=== PATIENT | female | born 1990 | race Caucasian/White ===

== ENCOUNTER 2019-02-23 21:01 | Emergency (ER) | payer OTHER ==
[2019-02-23 21:37] VITALS: BP 118/69; PULSE 72; TEMP 98.7; BMI 22.6
--- NOTE | 2019-02-23 22:18 | PDOC ---
History of Present Illness - General Chief Complaint: Cold Symptoms Stated Complaint: FLU LIKE SYMPTOMS Time Seen by Provider: 02/23/19 22:13 History Source: Patient - History of Present Illness Initial Comments: 02/23/19 22:37 Chief complaint: Cough Patient is a healthy 28-year-old female with 1 day of "fever", chills, temperature of 99 with cough, sore throat and runny nose. Patient is concerned that she has the flu. Patient siblings had similar. Patient is able to swallow, eat and drink. Patient complaining of painful cough. GENERAL/CONSTITUTIONAL: No fever, weakness. dizziness HEAD, EYES, EARS, NOSE AND THROAT: No change in vision. No ear pain or discharge. + sore throat. CARDIOVASCULAR: No chest pain RESPIRATORY: No shortness of breath or +cough GASTROINTESTINAL: No pain, nausea, vomiting, diarrhea or constipation GENITOURINARY: No dysuria MUSCULOSKELETAL: No neck or back pain SKIN: No rash NEUROLOGIC: No headache, vertigo, loss of consciousness, or loss of sensation. GENERAL: The patient is awake, alert, and fully oriented, in no acute distress. HEAD: Normal with no signs of trauma. EYES: Pupils equal, round and reactive to light, sclera anicteric, conjunctiva clear. ENT: pharynx: no erythema, no exudate, uvula midline, ears clear, TMs normal NECK: supple CHEST: clear, nontender, rr ABD: soft, nontender BACK: no tenderness or signs of injury EXTREMITIES: Normal range of motion, no edema. NEUROLOGICAL: Normal speech, normal gait. SKIN: Warm, Dry Past History - Past Medical History Allergies/Adverse Reactions: Allergies Allergy/AdvReac Type Severity Reaction Status Date / Time No Known Allergies Allergy Verified 02/23/19 21:34 COPD: No Other medical history: Pt denies - Suicide/Smoking/Psychosocial Hx Smoking History: Current every day smoker Have you smoked in the past 12 months: No Information on smoking cessation initiated: No Hx Alcohol Use: No Drug/Substance Use Hx: No *Physical Exam - Vital Signs Last Vital Signs Temp Pulse Resp BP Pulse Ox 98.7 F 72 18 118/69 99 02/23/19 21:35 02/23/19 21:35 02/23/19 21:35 02/23/19 21:35 02/23/19 21:35 Medical Decision Making - Medical Decision Making 02/23/19 22:38 healthy 28-year-old female with upper respiratory symptoms for one day, concerned about flu and cough. Is anxious about may be having the flu and that her cough is painful. Patient appears well, lungs are clear, nose concerning clinical signs. Patient given Motrin, flu and strep sent Patient signed out to [facility] to follow strep and flu and reassess *DC/Admit/Observation/Transfer Diagnosis at time of Disposition: Upper respiratory infection Qualifiers: URI type: unspecified URI Qualified Code(s): J06.9 - Acute upper respiratory infection, unspecified - Referrals Referrals: ON STAFF,NOT [Primary Care Provider] - - Patient Instructions - Post Discharge Activity
[2019-02-23] MEDS ORDERED: IBUPROFEN 600 MG TABLET (FP) PO ONE ×2 (22:28→22:31)
--- NOTE | 2019-02-23 23:06 | PDOC ---
*Physical Exam - Vital Signs Last Vital Signs Temp Pulse Resp BP Pulse Ox 98.7 F 72 18 118/69 99 02/23/19 21:35 02/23/19 21:35 02/23/19 21:35 02/23/19 21:35 02/23/19 21:35 ED Treatment Course - Medications Given in the ED: ED Medications Discontinued Medications Generic Name Dose Route Start Last Admin Trade Name Freq PRN Reason Stop Dose Admin Ibuprofen 600 mg 02/23/19 22:28 02/23/19 22:32 Motrin - PO 02/23/19 22:29 600 mg ONCE ONE Administration Medical Decision Making - Medical Decision Making 02/23/19 23:06 Patient seen by the advanced practice provider under my direct supervision. Ancillary testing reviewed as necessary. I agree with plan as outlined by the advanced practice provider. *DC/Admit/Observation/Transfer Diagnosis at time of Disposition: Upper respiratory infection Qualifiers: URI type: unspecified URI Qualified Code(s): J06.9 - Acute upper respiratory infection, unspecified - Discharge Dispostion Disposition: HOME - Prescriptions Prescriptions: Albuterol Sulfate Inhaler - [Ventolin HFA Inhaler -] 1 - 2 inh PO QID PRN #1 inhaler PRN Reason: Cough Guaifenesin [Mucinex] 600 mg PO BID #14 tab.er.12h Sodium Chloride [Saline Nasal [place]] 30 ml NS QID PRN #1 spray PRN Reason: nasal congestion - Referrals Referrals: ON STAFF,NOT [Primary Care Provider] - - Patient Instructions Printed Discharge Instructions: DI for Common Cold Additional Instructions: Drink plenty of fluids Gargle with warm salty water Drink warm liquids Take ibuprofen every 6 hours as needed for pain or fever Follow with your doctor as soon as possible. return to the ER for any worsening symptoms. - Post Discharge Activity Forms/Work/School Notes: Back to Work
--- NOTE | 2019-02-23 23:06 | PDOC ---
*Physical Exam - Vital Signs Last Vital Signs Temp Pulse Resp BP Pulse Ox 98.7 F 72 18 118/69 99 02/23/19 21:35 02/23/19 21:35 02/23/19 21:35 02/23/19 21:35 02/23/19 21:35 - Physical Exam General Appearance: Yes: Appropriately Dressed Respiratory/Chest: positive: Other (upper airway transmitted sounds. ) Cardiovascular: positive: Regular Rhythm, Regular Rate Extremity: positive: Normal Capillary Refill Integumentary: positive: Normal Color, Dry, Warm Neurologic: positive: Fully Oriented, Alert, Normal Mood/Affect ED Treatment Course - Medications Given in the ED: ED Medications Discontinued Medications Generic Name Dose Route Start Last Admin Trade Name Freq PRN Reason Stop Dose Admin Ibuprofen 600 mg 02/23/19 22:28 02/23/19 22:32 Motrin - PO 02/23/19 22:29 600 mg ONCE ONE Administration Medical Decision Making - Medical Decision Making 02/23/19 23:05 Viral syndrome P: Influenza negative rapid strep negative will give albuterol x 1 *DC/Admit/Observation/Transfer Diagnosis at time of Disposition: Upper respiratory infection Qualifiers: URI type: unspecified URI Qualified Code(s): J06.9 - Acute upper respiratory infection, unspecified - Discharge Dispostion Disposition: HOME Condition at time of disposition: Stable - Prescriptions Prescriptions: Albuterol Sulfate Inhaler - [Ventolin HFA Inhaler -] 1 - 2 inh PO QID PRN #1 inhaler PRN Reason: Cough Guaifenesin [Mucinex] 600 mg PO BID #14 tab.er.12h Sodium Chloride [Saline Nasal [place]] 30 ml NS QID PRN #1 spray PRN Reason: nasal congestion - Referrals Referrals: ON STAFF,NOT [Primary Care Provider] - - Patient Instructions Printed Discharge Instructions: DI for Common Cold Additional Instructions: Drink plenty of fluids Gargle with warm salty water Drink warm liquids Take ibuprofen every 6 hours as needed for pain or fever Follow with your doctor as soon as possible. return to the ER for any worsening symptoms. - Post Discharge Activity Forms/Work/School Notes: Back to Work
[2019-02-23] MEDS ORDERED: ALBUTEROL SO4 2.5/IPRATROPIUM 0.5 INH SOL 3 ML VIAL.NEB. NEB ONE ×2 (23:09→23:12)
== END 2019-02-23 23:46 | disposition home or self-care (01) ==
LOC: JERFT 21:01 → JER 21:01
PROC: 3E0F7GC Introduction of Other Therapeutic Substance into Respiratory Tract, Via Natural or Artificial Opening (ICD-10-PCS; principal; 2019-02-23)
DX: J06.9 Acute upper respiratory infection, unspecified (principal); B97.89 Other viral agents as the cause of diseases classified elsewhere
CPT/HCPCS: 87070; 87804; 87880; 94640; 99282-25

== ENCOUNTER 2019-07-01 14:34 | Emergency (ER) | payer OTHER ==
[2019-07-01 15:12] VITALS: TEMP 98.3; BMI 23.3
--- NOTE | 2019-07-01 15:13 | PDOC ---
Rapid Medical Evaluation Time Seen by Provider: 07/01/19 15:09 Medical Evaluation: Allergies Allergy/AdvReac Type Severity Reaction Status Date / Time No Known Allergies Allergy Verified 02/23/19 21:34 07/01/19 15:10 I have performed a brief in-person evaluation of this patient. The patient presents with a chief complaint of: Toothache x several days. No facial swelling. Also reports intermittent substernal/throat discomfort that worsens after ETOH or NSAID use Pertinent physical exam findings:stable and well marta I have ordered the following:nothing The patient will proceed to the ED for further evaluation. Discharge Disposition - Diagnosis Pain, dental - Referrals - Patient Instructions - Post Discharge Activity
[2019-07-01] MEDS ORDERED: SODIUM CHLORIDE 1,000 ML IV STA (16:55)
[2019-07-01] MEDS ORDERED: ONDANSETRON 4 MG/2 ML VIAL IVPUSH ONE (16:55)
[2019-07-01] MEDS ORDERED: MAG HYDROX/AL HYDROX/SIMETH 30 ML UNIT-DOSE CUP PO ONE (16:56)
[2019-07-01] MEDS ORDERED: FAMOTIDINE 20 MG/50 ML IVPB 20 MG/50 ML MG IVPB ONE ×2 (16:56→17:18)
[2019-07-01] MEDS ORDERED: MAG HYDROX/AL HYDROX/SIMETH 30 ML UNIT-DOSE CUP ONE (17:17)
[2019-07-01] MEDS ORDERED: ONDANSETRON 4 MG/2 ML VIAL ONE (17:18)
[2019-07-01 17:33] LABS: BASO % 0.4 % (0-2.0); EOS % 0.7 % (0-4.5); HEMATOCRIT 41.6 % (32.4-45.2); LYMPH % 13.1 % (8-40); MCH 30.6 pg (25.7-33.7); MCHC 33.7 g/dl (32.0-36.0); MEAN CELL VOLUME 90.8 fl (80-96); MEAN PLT VOLUME 7.1 fl (7.5-11.1); NEUT % 80.8 % (42.8-82.8); PLATELET COUNT 256 K/MM3 (134-434); RBC 4.58 M/mm3 (3.60-5.2); RDW 12.9 % (11.6-15.6); WHITE BLOOD COUNT 9.6 K/mm3 (4.0-10.0)
[2019-07-01 17:55] LABS: ALBUMIN 4.6 g/dl (3.4-5.0); BILIRUBIN,TOTAL 0.7 mg/dL (0.2-1); BLOOD UREA NITROGEN 10.6 mg/dL (7-18); CALCIUM 9.9 mg/dL (8.5-10.1); CREATININE 0.9 mg/dL (0.55-1.3); POTASSIUM 3.9 mmol/L (3.5-5.1); TOT PROT 7.8 g/dl (6.4-8.2)
[2019-07-01 18:21] LABS: EPI CELLS 8.7 /HPF (0-5/HPF); HYALINE CASTS 3 /lpf (0-8); URINE APPEARANCE CLEAR; URINE BACTERIA 83.3 /hpf (NEGATIVE); URINE BILIRUBIN NEGATIVE (NEGATIVE); URINE COLOR YELLOW; URINE GLUCOSE (UA) NEGATIVE (NEGATIVE); URINE KETONE 3+ (NEGATIVE); URINE LEUK ESTERASE NEGATIVE (NEGATIVE); URINE NITRITE NEGATIVE (NEGATIVE); URINE PROTEIN NEGATIVE (NEGATIVE); URINE RBC 2 /hpf (0-4); URINE WBC 6 /hpf (0-5)
--- NOTE | 2019-07-01 19:40 | PDOC ---
History of Present Illness - General Chief Complaint: Pain Stated Complaint: SORE THROAT/ABD PAIN Time Seen by Provider: 07/01/19 15:09 History Source: Patient Exam Limitations: No Limitations Past History - Travel Traveled outside of the country in the last 30 days: No Close contact w/someone who was outside of country & ill: No - Past Medical History Allergies/Adverse Reactions: Allergies Allergy/AdvReac Type Severity Reaction Status Date / Time No Known Allergies Allergy Verified 07/01/19 15:12 Home Medications: Ambulatory Orders Amoxicillin - [Amoxicillin 500mg Capsule -] 500 mg PO BID #14 capsule 07/01/19 Famotidine [Pepcid -] 20 mg PO BID #14 tablet 07/01/19 Mag Hydrox/Al Hydrox/Simeth [Mylanta *Suspension*] 30 ml PO Q6H #300 ml Pantoprazole Sodium [Protonix -] 20 mg PO BID #14 tablet.ec 07/01/19 COPD: No - Psycho Social/Smoking Cessation Hx Smoking History: Never smoked Have you smoked in the past 12 months: No Hx Alcohol Use: No Drug/Substance Use Hx: No Review of Systems - Review of Systems Able to Perform ROS?: Yes Comments:: 07/02/19 00:26 CONSTITUTIONAL: Present: generalized weakness Absent: fever, chills, diaphoresis, malaise, loss of appetite HEENT: Present: dental pain Absent: rhinorrhea, nasal congestion, throat pain, throat swelling, difficulty swallowing, mouth swelling, ear pain, eye pain, visual Changes CARDIOVASCULAR: Absent: chest pain, loss of consciousness, palpitations, irregular heart rate, peripheral edema RESPIRATORY: Absent: cough, shortness of breath, dyspnea with exertion, orthopnea, wheezing, stridor, hemoptysis GASTROINTESTINAL: Present: abdominal pain Absent: abdominal distension, nausea, vomiting, diarrhea , constipation, melena, hematochezia GENITOURINARY: Absent: dysuria, frequency, urgency, hesitancy, hematuria, flank pain, genital pain MUSCULOSKELETAL: Absent: myalgia, arthralgia, joint swelling SKIN: Absent: rash, itching, pallor HEMATOLOGIC/IMMUNOLOGIC: Absent: easy bleeding, easy bruising, lymphadenopathy, frequent infections ENDOCRINE: Absent: unexplained weight gain, unexplained weight loss, heat intolerance, cold intolerance NEUROLOGIC: Absent: headache, focal weakness or paresthesias, dizziness, unsteady gait, seizure, mental status changes, bladder or bowel incontinence PSYCHIATRIC: Absent: anxiety, depression, suicidal or homicidal ideation, hallucinations. Is the patient limited Danish proficient: No *Physical Exam - Vital Signs Last Vital Signs Temp Pulse Resp BP Pulse Ox 98.3 F 86 18 160/92 99 07/01/19 15:08 07/01/19 15:08 07/01/19 15:08 07/01/19 15:08 07/01/19 15:08 - Physical Exam 07/02/19 01:31 GENERAL: Well developed, well nourished. Awake and alert. No acute distress. HEENT: Normocephalic, atraumatic. PERRLA, EOMI. No conjunctival pallor. Sclera are non- icteric. Moist mucous membranes. Oropharynx is clear. NECK: Supple. Full ROM. No lymphadenopathy. CARDIOVASCULAR: Regular rate and rhythm. No murmurs, rubs, or gallops. Distal pulses are 2+ and symmetric. PULMONARY: No evidence of respiratory distress. Lungs clear to auscultation bilaterally. No wheezing, rales or rhonchi. ABDOMINAL: Soft. tenderness to palpation of the right upper quadrant, negative White sign. Non-distended. No rebound or guarding. No organomegaly. Normoactive bowel sounds. MUSCULOSKELETAL Normal range of motion at all joints. No bony deformities or tenderness. No CVA tenderness. EXTREMITIES: No cyanosis. No clubbing. No edema. No calf tenderness. SKIN: Warm and dry. Normal capillary refill. No rashes. No jaundice. NEUROLOGICAL: Alert, awake, appropriate. Cranial nerves 2-12 intact. No deficits to light touch and temperature in face, upper extremities and lower extremities. No motor deficits in the in face, upper extremities and lower extremities. Normoreflexic in the upper and lower extremities. Normal speech. Toes are down- going bilaterally. Gait is normal without ataxia. PSYCHIATRIC: Cooperative. Good eye contact. Appropriate mood and affect. ED Treatment Course - LABORATORY CBC & Chemistry Diagram: 07/01/19 17:10 07/01/19 17:10 - ADDITIONAL ORDERS Additional order review: Laboratory Results 07/01/19 07/01/19 07/01/19 17:30 17:10 17:10 Sodium 137 Potassium 3.9 Chloride 104 Carbon Dioxide 25 Anion Gap 7 L BUN 10.6 Creatinine 0.9 Est GFR (CKD-EPI)AfAm 100.85 Est GFR (CKD-EPI)NonAf 87.01 Random Glucose 78 Calcium 9.9 Total Bilirubin 0.7 AST 13 L ALT 27 Alkaline Phosphatase 82 Total Protein 7.8 Albumin 4.6 Lipase 60 L Urine Color Yellow Urine Appearance Clear Urine pH 5.0 Ur Specific [place] 1.023 Urine Protein Negative Urine Glucose (UA) Negative Urine Ketones 3+ H Urine Blood 1+ H Urine Nitrite Negative Urine Bilirubin Negative Urine Urobilinogen 1.0 Ur Leukocyte Esterase Negative Urine WBC (Auto) 6 Urine RBC (Auto) 2 Urine Casts (Auto) 3 U Epithel Cells (Auto) 8.7 Urine Bacteria (Auto) 83.3 07/01/19 17:10 RBC 4.58 MCV 90.8 MCHC 33.7 RDW 12.9 MPV 7.1 L Neutrophils % 80.8 Lymphocytes % 13.1 Monocytes % 5.0 Eosinophils % 0.7 Basophils % 0.4 - RADIOLOGY Radiology Studies Ordered: Category Date Time Status ABDOMEN US -LIMITED [US] Stat Ultrasound 07/01/19 16:56 Completed - Medications Given in the ED: ED Medications Discontinued Medications Generic Name Dose Route Start Last Admin Trade Name Freq PRN Reason Stop Dose Admin Al Hydroxide/Mg Hydroxide 30 ml 07/01/19 16:56 07/01/19 17:20 Mylanta Oral Suspension - PO 07/01/19 16:57 30 ml ONCE ONE Administration Famotidine/Sodium Chloride 20 mg in 50 mls @ 100 mls/hr 07/01/19 16:56 17:30 Pepcid 20 Mg Premixed Ivpb - IVPB 07/01/19 17:25 100 mls/hr ONCE ONE Administration Sodium Chloride 1,000 mls @ 1,000 mls/hr 07/01/19 16:55 07/01/19 17:20 Normal Saline - IV 07/01/19 17:54 1,000 mls/hr ASDIR STA Administration Ondansetron HCl 4 mg 07/01/19 16:55 07/01/19 17:25 Zofran Injection IVPUSH 07/01/19 16:56 4 mg ONCE ONE Administration Medical Decision Making - Medical Decision Making 07/02/19 00:26 The patient is a 28-year-old female with no past medical history, who presents to the ER today with multiple complaints. She states that she is having dental pain, sore throat, abdominal pain and facial swelling. She states that she thinks she needs to get her wisdom tooth pulled out. She notes that all her symptoms been going on for approximately a week. She also endorses constitutional symptoms. A/P: Gastritis, dental pain On exam patient with a infected back right molar. No obvious abscess. Will prescribe amoxicillin. Patient with right upper quadrant pain on on exam. Negative White sign. Rapid strep/ flu test is negative. Basic lab work is within normal limits, electrolytes show no abnormalities. right upper quadrant ultrasound shows no abnormalities, no evidence of cholecystitis Patient feels better after GI cocktail. Likely reflux given normal exam, normal labs. Discharge home with primary care follow-up I discussed the physical exam findings, ancillary test results and final diagnoses with the patient. I answered all of the patient's questions. The patient was satisfied with the care received and felt comfortable with the discharge plan and treatment plan. The Patient agrees to follow up with the primary care physician/specialist within 24-72 hours. Return precautions were given. Discharge - Discharge Information Problems reviewed: Yes Clinical Impression/Diagnosis: Pain, dental GERD (gastroesophageal reflux disease) Qualifiers: Esophagitis presence: without esophagitis Qualified Code(s): K21.9 - Gastro- esophageal reflux disease without esophagitis Condition: Stable Disposition: HOME - Admission No - Additional Discharge Information Prescriptions: Amoxicillin - [Amoxicillin 500mg Capsule -] 500 mg PO BID #14 capsule Famotidine [Pepcid -] 20 mg PO BID #14 tablet Mag Hydrox/Al Hydrox/Simeth [Mylanta *Suspension*] 30 ml PO Q6H #300 ml Pantoprazole Sodium [Protonix -] 20 mg PO BID #14 tablet.ec - Follow up/Referral Referrals: Jesse Vela MD [Staff Physician] - - Patient Discharge Instructions Patient Printed Discharge Instructions: DI for Gastroesophageal Reflux Disease (GERD), DI for Dental Pain Additional Instructions: You were evaluated for your dental pain and stomach pain today. You most likely have a dental infection. Please take the amoxicillin twice a day for 1 week. You most likely have reflux causing your abdominal pain. Please take both the Pepcid and pantoprazole twice a day for 1 week. You may take the Mylanta every 6 hours to coat the stomach to help with pain. Please take Tylenol as needed for pain control. Do not take Motrin or ibuprofen , Advil as this can make your stomach pain worse. On your ultrasound today it showed you had gallbladder polyps. You need to follow-up with gastro enterology, stomach doctor, for repeat ultrasound. Follow-up with your primary care doctor this week. Return to the ER for worsening abdominal pain, vomiting, lightheadedness or if you have any changes in your symptoms. - Post Discharge Activity Work/Back to School Note: Back to Work
[2019-07-01 20:24] VITALS: BP 158/89; PULSE 84
== END 2019-07-01 20:25 | disposition home or self-care (01) ==
LOC: JER 14:34
PROC: 3E033GC Introduction of Other Therapeutic Substance into Peripheral Vein, Percutaneous Approach (ICD-10-PCS; principal; 2019-07-01)
PROC: 3E033GC Introduction of Other Therapeutic Substance into Peripheral Vein, Percutaneous Approach (ICD-10-PCS; 2019-07-01)
DX: K21.9 Gastro-esophageal reflux disease without esophagitis (principal); K08.89 Other specified disorders of teeth and supporting structures
CPT/HCPCS: 36415; 76705-TC; 80053; 81003; 83690; 85025; 87070; 87086; 87804; 87880; 99283-25; J7030

== ENCOUNTER 2020-08-05 19:03 | Emergency (ER) | payer OTHER ==
[2020-08-05 19:08] VITALS: BP 118/78; PULSE 74; TEMP 97; BMI 22.6
[2020-08-05] MEDS ORDERED: ONDANSETRON *ODT* 4 MG TABLET SL ONE (19:26)
[2020-08-05] MEDS ORDERED: FAMOTIDINE 20 MG TABLET PO ONE (19:26)
[2020-08-05] MEDS ORDERED: FAMOTIDINE 20 MG/50 ML IVPB 20 MG/50 ML MG IVPB ONE ×2 (19:43→20:01)
[2020-08-05] MEDS ORDERED: ONDANSETRON 4 MG/2 ML VIAL ONE (20:01)
[2020-08-05 20:47] LABS: BASO % 0.4 % (0-2.0); EOS % 0.7 % (0-4.5); HEMOGLOBIN 13.7 GM/dL (10.7-15.3); LYMPH % 13.3 % (8-40); MCH 31.1 pg (25.7-33.7); MCHC 34.3 g/dl (32.0-36.0); MEAN CELL VOLUME 90.8 fl (80-96); MEAN PLT VOLUME 7.7 fl (7.5-11.1); MONO % 5.4 % (3.8-10.2); NEUT % 80.2 % (42.8-82.8); PLATELET COUNT 277 K/MM3 (134-434); RDW 13.4 % (11.6-15.6); WHITE BLOOD COUNT 8.4 K/mm3 (4.0-10.0)
[2020-08-05 21:01] LABS: POTASSIUM 3.9 mmol/L (3.5-5.1)
[2020-08-05 21:04] LABS: ALBUMIN 4.4 g/dl (3.4-5.0); BLOOD UREA NITROGEN 9.9 mg/dL (7-18); CALCIUM 9.4 mg/dL (8.5-10.1)
[2020-08-05 21:09] LABS: BILIRUBIN,TOTAL 0.8 mg/dL (0.2-1); TOT PROT 7.4 g/dl (6.4-8.2)
[2020-08-05 21:17] LABS: CREATININE 0.9 mg/dL (0.55-1.3)
[2020-08-05] MEDS ORDERED: MAG HYDROX/AL HYDROX/SIMETH 30 ML UNIT-DOSE CUP PO ONE (21:36)
[2020-08-05] MEDS ORDERED: SUCRALFATE 1 GM/10 ML UNIT DOSE CUPS PO ONE (21:36)
[2020-08-05] MEDS ORDERED: ACETAMINOPHEN 500 MG TABLET (FP) PO ONE (21:37)
[2020-08-05] MEDS ORDERED: ACETAMINOPHEN 325 MG TABLET (FP) ONE (23:45)
[2020-08-05] MEDS ORDERED: SUCRALFATE 1 GM TABLET (FP) ONE (23:46)
[2020-08-05] MEDS ORDERED: MAG HYDROX/AL HYDROX/SIMETH 30 ML UNIT-DOSE CUP ONE (23:46)
== END 2020-08-06 00:30 | disposition home or self-care (01) ==
LOC: JER 19:03
PROC: 3E033GC Introduction of Other Therapeutic Substance into Peripheral Vein, Percutaneous Approach (ICD-10-PCS; principal; 2020-08-05)
DX: K21.9 Gastro-esophageal reflux disease without esophagitis (principal)
CPT/HCPCS: 36415; 76700-TC; 80053; 83690; 84703; 85025; 99284-25; Q0162